=== PATIENT | female | born 1965 | race Two or more races ===

== ENCOUNTER 2020-05-11 09:55 | Outpatient (CLI) | payer OTHER | END 2020-05-11 17:44 | disposition home or self-care (01) | LOC: OFIC 805 09:55 | PROVIDERS: ATTEND Otolaryngology Otology & Neurotology | DX: H92.03 Otalgia, bilateral (principal); H60.8X3 Other otitis externa, bilateral; H61.23 Impacted cerumen, bilateral ==

== ENCOUNTER 2020-06-08 10:50 | Outpatient (CLI) | payer OTHER | END 2020-06-08 11:20 | disposition home or self-care (01) | LOC: OFIC 805 10:50 | PROVIDERS: ATTEND Otolaryngology Otology & Neurotology | DX: H92.03 Otalgia, bilateral (principal); H60.8X3 Other otitis externa, bilateral; H61.23 Impacted cerumen, bilateral ==